=== PATIENT | female | born 1970 | race Caucasian/White ===

== ENCOUNTER 2016-05-31 22:14 | Emergency (ER) | payer OTHER ==
[2016-05-31] MEDS ORDERED: IOPAMIDOL 370 (76%) IV.SOLN 150 ML IV ONE (22:15)
[2016-05-31] MEDS ORDERED: ASPIRIN CHEWTAB 81 MG TABLET ONE (22:47)
[2016-05-31 23:09] LABS: ABSOLUTE NEUTROPHIL COUNT 4.1 K/mm3 (1.8-7.7); BASO # 0.1 K/mm3 (0.0-0.2); BASO % 0.5 % (0.2-1.0); EOS # 0.2 (0.0-0.5); EOS % 1.3 % (0.9-2.9); HEMATOCRIT 39.3 % (37.0-47.0); HEMOGLOBIN 12.9 gm/l (12.0-16.0); IMM NEUT% 0.1 % (0-1); LYMPH # 10.5 (1.0-4.8); LYMPH % 65.6 % (15-45); MEAN CELL VOLUME 92.5 fl (81.0-99.0); MEAN CORPUSCULAR HEMOGLOBIN 30.4 pg (27.0-31.0); MEAN CORPUSCULAR HGB CONC 32.8 g/dl (33.0-37.0); MEAN PLATELET VOLUME 9.8 fl (7.4-10.4); MONO # 1.1 (0.0-0.8); MONO % 6.9 % (4-12); NEUT % 25.6 % (43-75); PLATELET COUNT 319 K/mm3 (130-400); RED CELL DISTRIBUTION WIDTH 13.2 % (11.5-14.5)
[2016-05-31] MEDS ORDERED: SODIUM CHLORIDE 0.9% 1,000 ML ONE (23:16)
[2016-05-31 23:23] LABS: ALB/GLOB RATIO 1.4 (>1.0); ALBUMIN 3.7 gm/dL (3.5-5.7); CALCIUM 9.3 mg/dL (8.6-10.3)
[2016-05-31 23:24] LABS: TROPONIN I < 0.01 ng/ml (0.0-0.06)
[2016-05-31 23:28] LABS: CKMB ISOENZYME 0.7 ng/ml (0.6-6.3)
[2016-05-31 23:30] LABS: D-DIMER 0.35 mg/L FEU (0.20-0.50); PARTIAL THROMBOPLASTIN TIME 23.5 SECONDS (24.5-33.0)
[2016-05-31 23:49] LABS: BAND 0 % (0-10); NEUTROPHILS 17 % (43-75); TOTAL CELLS COUNTED 100
[2016-05-31 23:50] LABS: LYMPHOCYTE 66 % (15-45)
[2016-05-31 23:51] LABS: ATYPICAL LYMPHOCYTE 8 %; BASOPHIL 0 % (0-1); EOSINOPHIL 1 % (1-3); MONOCYTE 6 % (4-12)
[2016-05-31 23:52] LABS: PLATELET ESTIMATE NORMAL (NORMAL)
[2016-05-31 23:53] LABS: ORDER PATH REVIEW YES
[2016-06-01 00:14] LABS: URINE BILIRUBIN NEGATIVE (NEGATIVE); URINE BLOOD NEGATIVE (NEGATIVE); URINE GLUCOSE (UA) NEGATIVE (NEGATIVE); URINE LEUKOCYTE ESTERASE NEGATIVE (NEGATIVE); URINE NITRITE NEGATIVE (NEGATIVE); URINE PROTEIN NEGATIVE (NEGATIVE); URINE UROBILINOGEN NORMAL (0-1 mg/dl)
[2016-06-01 00:18] LABS: URINE APPEARANCE HAZY; URINE COLOR YELLOW
[2016-06-01] MEDS ORDERED: MAALOX/LIDO2%VISC/SIMETHICONE 40 ML BOT ONE (00:33)
[2016-06-01] MEDS ORDERED: FAMOTIDINE 10 MG/ML 2ML VIAL ONE (01:16)
--- NOTE | 2016-06-01 07:55 | RAD ---
Exam: Two-view chest COMPARISON: 08/23/2014 INDICATION: Chest pain, shortness of breath and dizziness. FINDINGS: PA and lateral views of the chest were obtained. Cardiac silhouette is within normal limits and stable. Lungs are well-inflated. There is no focal airspace disease or pleural effusion. Focal degenerative disc disease is again noted at T11-12. Bones of the chest wall otherwise unremarkable. Post cholecystectomy. IMPRESSION: No acute pulmonary process
--- NOTE | 2016-06-01 07:56 | CT ---
Exam: CT chest, abdomen and pelvis with contrast COMPARISON: Chest radiograph 05/31/[address] abdomen and pelvis 07/29/2015 INDICATION: Chest pain, shortness of breath and dizziness. TECHNIQUE: CT examination of the chest, abdomen and pelvis was obtained following the administration of 125 mL Isovue-370 intravenous contrast. FINDINGS: The aorta is normal in caliber and contour; there is some pulsation artifact at the root of the aorta. There is no aortic dissection or aneurysm. Although examination was not obtained as a PE protocol, no evidence of pulmonary thromboembolic disease is identified. There is no focal airspace disease or pneumothorax. There is no pleural or pericardial effusion. Tiny hiatal hernia is noted. Post cholecystectomy. Liver, spleen, pancreas and adrenal glands are unremarkable. There is a 3 mm nonobstructing calculus in the right kidney. Kidneys otherwise unremarkable. IUD is present. Uterus is otherwise unremarkable. There is no adnexal mass. Bowel, including the appendix, is unremarkable and there is no bowel obstruction, free air or free intraperitoneal fluid. No worrisome lytic or blastic osseous lesion is identified. A focally prominent degenerative disc disease with a prominent posterior disc osteophyte complex is again appreciated T11-12. IMPRESSION: No acute findings identified to explain patient's symptoms. A few stable and subtle findings as above, including tiny hiatal hernia, right-sided nephrolithiasis and IUD. Interval cholecystectomy. Preliminary report transmitted to the emergency department from [facility] at 0048 hours 06/01/2016.
== END 2016-06-01 02:10 | disposition home or self-care (01) ==
LOC: ED 22:14
DX: R09.1 Pleurisy (principal); R07.9 Chest pain, unspecified; R11.2 Nausea with vomiting, unspecified; K22.70 Barrett's esophagus without dysplasia; K21.9 Gastro-esophageal reflux disease without esophagitis; F17.210 Nicotine dependence, cigarettes, uncomplicated
CPT/HCPCS: 85379; 85025; 82553; 80053; 83735; 85730; 81003; 84484; 71020; 74177; 71260; 87804; 99284 ×2; 96374; 96361 ×3; 93005; A9270 ×2; J7030; Q9967

== ENCOUNTER 2016-06-18 11:41 | Day surgery (SDC) | payer OTHER ==
[2016-06-18] MEDS ORDERED: LACTATED RINGERS 1,000 ML ONE (12:43)
[2016-06-18] MEDS ORDERED: IV START KIT ONE (12:43)
[2016-06-18] MEDS ORDERED: PROPOFOL 20 ML IV ONE ×2 (13:22→13:23)
--- NOTE | 2016-06-23 15:17 | SURGPATH ---
[facility] 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 STOMACH, ANTRUM, BIOPSY: - NO DIAGNOSTIC ABNORMALITIES - NO HELICOBACTER ORGANISMS SEEN ON ROUTINE STAIN 2. GASTROESOPHAGEAL JUNCTION, BIOPSY: - SQUAMOCOLUMNAR MUCOSA WITH INTESTINAL METAPLASIA - NO DYSPLASIA SEEN - ESOPHAGITIS WITH INCREASED INTRAEPITHELIAL EOSINOPHILS - SEE COMMENT 3. ESOPHAGUS, MID, BIOPSY: - ESOPHAGITIS WITH INCREASED INTRAEPITHELIAL EOSINOPHILS - SEE COMMENT Comment: A diagnosis of Marshall's esophagus requires the combination of abnormal esophageal endoscopic findings and biopsy-confirmed intestinal metaplasia. Clinicopathologic correlation is necessary. The esophagus biopsies show increased intraepithelial eosinophils; the differential diagnosis includes reflux esophagitis vs. eosinophilic esophagitis. Electronically Signed Out Janeen France M.D. Gross Description: #1 The specimen is received in a formalin filled container labeled with the patient's name and "antral". A single leary biopsy is 0.5 cm. Totally embedded in cassette #1. #2 The specimen is received in a formalin filled container labeled with the patient's name and "GE junction". Multiple leary biopsies are 0.2-0.4 cm. Totally embedded in cassette #2. #3 The specimen is received in a formalin filled container labeled with the patient's name and "mid esophagus". Four pale bronson biopsies are 0.1, 0.2, 0.2 and 0.5 cm. Totally embedded in cassette #3. Leo Tinoco Microscopic Description: Part 1: Sections show gastric antral and oxyntic mucosa with overall intact architecture. No significant active or chronic inflammation is seen. No Helicobacter organisms are seen on routine stain. No dysplasia or malignancy is seen. Part 2: Squamous mucosa shows increased intraepithelial eosinophils, up to 21 per high power field. There is basal hyperplasia and papillary elongation. Columnar mucosa is present with nonspecific chronic inflammation. One focus of intestinal metaplasia is seen. Reactive epithelial changes are seen but they do not extend to the luminal surface are not felt to constitute dysplasia. Paneth cell metaplasia is seen. This part was reviewed at the intradepartmental pathology conference with concurrence of the interpretation by all the attendees. Part 3: Sections show detached strips of squamous epithelium without columnar mucosa, intestinal metaplasia, or dysplasia. The squamous epithelium shows basilar hyperplasia and papillary elongation. There are increased intraepithelial eosinophils, up to nine per high power field. 1: 97377 2: 21625 3: 43485, 3126F K22.70 K21.0 K20.0
== END 2016-06-18 14:53 | disposition home or self-care (01) ==
LOC: SDC 11:41
PROVIDERS: ATTEND Surgery
PROC: 0D748ZZ Dilation of Esophagogastric Junction, Via Natural or Artificial Opening Endoscopic (ICD-10-PCS; principal; 2016-06-18)
PROC: 0DB68ZX Excision of Stomach, Via Natural or Artificial Opening Endoscopic, Diagnostic (ICD-10-PCS; 2016-06-18)
PROC: 0DB48ZX Excision of Esophagogastric Junction, Via Natural or Artificial Opening Endoscopic, Diagnostic (ICD-10-PCS; 2016-06-18)
PROC: 0DB28ZX Excision of Middle Esophagus, Via Natural or Artificial Opening Endoscopic, Diagnostic (ICD-10-PCS; 2016-06-18)
DX: K22.2 Esophageal obstruction (principal); K22.70 Barrett's esophagus without dysplasia; K44.9 Diaphragmatic hernia without obstruction or gangrene; K21.0 Gastro-esophageal reflux disease with esophagitis; D67 Hereditary factor IX deficiency; E66.9 Obesity, unspecified; E78.1 Pure hyperglyceridemia; J45.991 Cough variant asthma; Z88.5 Allergy status to narcotic agent; F17.290 Nicotine dependence, other tobacco product, uncomplicated; Z68.39 Body mass index [BMI] 39.0-39.9, adult